=== PATIENT | male | born 1990 | race Asian ===

== ENCOUNTER 2018-12-17 13:33 | Emergency (ER) | payer OTHER ==
[~2018-12-17] VITALS: Ht 185.4 cm; Wt 78.5 kg
[2018-12-17 13:40] VITALS: Ht 185.4 cm; Wt 78.5 kg
[2018-12-17 14:14] LABS: BASOPHIL % 0.3 % (0-2); PLATELET COUNT 229 x10^3mcL (130-400); RED CELL DISTRIBUTION WIDTH 12.8 % (11.5-14.5)
[2018-12-17 14:26] LABS: CARBON DIOXIDE 31.1 mmol/L (21-32); CHLORIDE SERUM 104 mmol/L (98-107); CREATININE SERUM 1.1 mg/dL (0.7-1.3); GFR1 > 60 mL/min; GLUCOSE SERUM 93 mg/dL (74-106); POTASSIUM SERUM 4.1 mmol/L (3.5-5.1); SODIUM SERUM 142 mmol/L (136-145)
[2018-12-17 14:31] LABS: ALBUMIN 3.7 g/dL (3.4-5.0); ALKALINE PHOSPHATASE 67 U/L (46-116); ALT/SGPT 36 U/L (16-63); AST/SGOT 15 U/L (15-37); BILIRUBIN TOTAL 0.3 mg/dL (0.20-1.00); LIPASE 116 IU/L (73-393); TOTAL PROTEIN, SERUM 7.3 g/dL (6.4-8.2)
[2018-12-17 17:31] VITALS: BP 128/83
== END 2018-12-17 17:33 | disposition home or self-care (01) ==
LOC: ED 13:33
DX: R10.13 Epigastric pain (principal); Z88.1 Allergy status to other antibiotic agents
CPT/HCPCS: 36415